=== PATIENT | female | born 1945 | race Two or more races ===

== ENCOUNTER 2018-06-02 10:55 | Outpatient (CLI) | payer OTHER | END 2018-06-02 11:02 | disposition home or self-care (01) | LOC: RAD 501 10:55 | DX: M25.511 Pain in right shoulder (principal) ==

== ENCOUNTER → 2018-06-04 06:59 | Outpatient (CLI) | payer OTHER | END | disposition home or self-care (01) | LOC: LAB 06:59 | DX: D64.89 Other specified anemias (principal); D68.8 Other specified coagulation defects; N39.0 Urinary tract infection, site not specified; E88.89 Other specified metabolic disorders; A49.02 Methicillin resistant Staphylococcus aureus infection, unspecified site; E83.42 Hypomagnesemia; E11.9 Type 2 diabetes mellitus without complications; E55.9 Vitamin D deficiency, unspecified; Z76.89 Persons encountering health services in other specified circumstances; I49.8 Other specified cardiac arrhythmias; R82.79 Other abnormal findings on microbiological examination of urine ==

== ENCOUNTER 2018-06-15 05:55 | Day surgery (SDC) | payer OTHER | END 2018-06-15 16:11 | disposition home or self-care (01) | LOC: CIR.AMB 05:55 | DX: M75.121 Complete rotator cuff tear or rupture of right shoulder, not specified as traumatic (principal); M19.011 Primary osteoarthritis, right shoulder; M24.511 Contracture, right shoulder; M75.21 Bicipital tendinitis, right shoulder ==